=== PATIENT | female | born 1945 | race Caucasian/White ===

== ENCOUNTER 2018-03-30 08:10 | Emergency (ER) | payer BC, OTHER ==
[~2018-03-30] VITALS: Ht 152.4 cm; Wt 51.3 kg
[2018-03-30 08:10] VITALS: BP_SYST 166
[~2018-03-30 08:10] MED LIST: GLIPIZIDE; METFORMIN; SYNTHROID
--- NOTE | 2018-03-30 08:10 | NUR ---
BROUGHT BACK TO BED #6 AND TRIAGED, REPORT GIVEN TO ARGENIS
--- NOTE | 2018-03-30 08:26 | NUR ---
DR FINLEY AT BEDSIDE FOR EVALUATION
--- NOTE | 2018-03-30 08:28 | NUR ---
Pt complains of nausea and vomiting this morning and dizziness. Pt states when she woke up she thought the room was spinning. Pt denies fever. No other injuries/complaints per patient or noted.
--- NOTE | 2018-03-30 08:29 | NUR ---
Tati holloway in EDM - 03/30/18 at 0830 by [email or web address] ANKIT Paz at bedside examining patient.
[2018-03-30] MEDS ORDERED: KETOROLAC TROMETHAMINE 30 MG VIAL IM ONE (08:45)
[2018-03-30] MEDS ORDERED: ONDANSETRON 4 MG ODT TAB PO ONE (08:45)
--- NOTE | 2018-03-30 08:48 | NUR ---
Medications were given, pt tolerated well. no adverse reaction, will continue.
--- NOTE | 2018-03-30 09:15 | NUR ---
pt resting comfortably in hospital bed. No acute distress. Will cotninue to monitor.
[2018-03-30 10:25] VITALS: BP_SYST 143
--- NOTE | 2018-03-30 10:25 | NUR ---
Patient given written and verbal discharge instructions and verbalizes understanding. ER MD discussed with patient the results and treatment provided. Patient in stable condition. ID arm band removed. Rx of Tramadol and Zofran given. Patient educated on pain management and to follow up with PMD. Pain Scale 0. Opportunity for questions provided and answered. Medication side effect fact sheet provided.
[2018-03-31] MEDS ORDERED: SITA1TAB6 PO (18:23)
[2018-03-31] MEDS ORDERED: ASA81 PO (18:23)
[2018-03-31] MEDS ORDERED: LISI-209 PO (18:23)
[2018-03-31] MEDS ORDERED: LOVA20TA2 PO (18:23)
[2018-03-31] MEDS ORDERED: GLIP-212 PO (18:23)
[2018-03-31] MEDS ORDERED: LEVO100T PO (18:23)
== END 2018-03-30 10:25 | disposition home or self-care (01) ==
LOC: SED 08:10
DX: G44.209 Tension-type headache, unspecified, not intractable (principal); E11.9 Type 2 diabetes mellitus without complications; Z79.899 Other long term (current) drug therapy
CPT/HCPCS: 96372; 99283; J1885; Q0162

== ENCOUNTER 2018-03-31 16:22 | Inpatient (IN) | payer OTHER ==
[~2018-03-31] VITALS: Ht 152.4 cm; Wt 51.3 kg
[2018-03-31 16:31] VITALS: BP_SYST 158
[2018-03-31] MEDS ORDERED: MECLIZINE HCL 25 MG TABLET (ANITVERT) PO ONE (17:00)
[2018-03-31 17:08] LABS: BASOPHILS # (AUTO) 0.1 K/uL (0.0-0.2); BASOPHILS % (AUTO) 0.9 % (0.0-2.0); EOSINOPHILS # (AUTO) 0.1 K/uL (0.0-0.4); EOSINOPHILS % (AUTO) 0.9 % (0.0-4.0); HEMATOCRIT 40.2 % (36-48); HEMOGLOBIN 13.4 g/dL (12.0-16.0); LYMPHOCYTES # (AUTO) 1.8 K/uL (1.0-5.5); LYMPHOCYTES % (AUTO) 13.9 % (20.5-51.5); MEAN CORPUSCULAR HEMOGLOBIN 29 pg (27-31); MEAN CORPUSCULAR HGB CONC 33 % (32-36); MEAN CORPUSCULAR VOLUME 88 fL (79.0-98.0); MONOCYTES # (AUTO) 0.9 K/uL (0.0-1.0); NEUTROPHILS # (AUTO) 10.1 K/uL (1.8-7.7); NEUTROPHILS % (AUTO) 77.3 % (40.0-70.0); PLATELET COUNT (AUTO) 354 K/uL (130-430); RED BLOOD CELL COUNT(AUTO) 4.55 MIL/uL (4.2-6.2); RED CELL DISTRIBUTION WIDTH 12.1 % (9.0-15.0)
[2018-03-31 17:22] LABS: ANION GAP 11 (5-15); CALCIUM 9.6 mg/dL (8.4-11.0); CHLORIDE 102 mmol/L (98-107); CREATININE 0.71 mg/dL (0.55-1.30); GLUCOSE 205 mg/dL (70-99); POTASSIUM 3.7 mmol/L (3.5-5.1); SODIUM SERUM 140 mmol/L (136-145); UREA NITROGEN, BLOOD 25 mg/dL (8-21)
[2018-03-31 17:24] LABS: PROTHROMBIN TIME 10.5 SECS (9.5-12.5)
[2018-03-31 17:32] LABS: ALANINE AMINOTRANSFERASE 18 U/L (12-78); ASPARTATE AMINOTRANSFERASE 20 U/L (10-37); FREE T4 (FREE THYROXINE) 1.2 ng/dl (0.8-1.5); TOTAL BILIRUBIN 0.4 mg/dL (0.0-1.0)
[2018-03-31 17:37] LABS: ALCOHOL, BLOOD < 3 mg/dL (<10)
[2018-03-31] MEDS ORDERED: ASA81 PO (18:23)
[2018-03-31] MEDS ORDERED: LEVO100T PO (18:23)
[2018-03-31] MEDS ORDERED: GLIP-212 PO (18:23)
[2018-03-31] MEDS ORDERED: LOVA20TA2 PO (18:23)
[2018-03-31] MEDS ORDERED: LISI-209 PO (18:23)
[2018-03-31] MEDS ORDERED: SITA1TAB6 PO (18:23)
[2018-03-31] MEDS ORDERED: ASPIRIN 325 MG TABLET PO SCH (18:30)
[2018-03-31] MEDS ORDERED: NS 500 ML IV ONE (18:30)
[2018-03-31] MEDS: 0.45% NACL 1,000 ML IV SCH (19:55)
[2018-03-31 20:00] VITALS: BP_SYST 128
[2018-04-01 00:18] VITALS: BP_SYST 120
[2018-04-01 08:00] VITALS: BP_SYST 114
[2018-04-01] MEDS ORDERED: ATORVASTATIN 20 MG TABLET PO SCH (09:00)
[2018-04-01] MEDS: 0.45% NACL 1,000 ML IV SCH (09:17)
[2018-04-01] MEDS ORDERED: ONDANSETRON HCL 4 MG/2 ML VIAL IVP PRN (09:45)
[2018-04-01] MEDS ORDERED: ACETAMINOPHEN 325 MG TABLET PO PRN (09:45)
[2018-04-01] MEDS ORDERED: INSULIN REGULAR, HUMAN 100 UNITS/ML, 10 ML VIAL (novoLIN R) SUBCUT PRN (10:00)
[2018-04-01] MEDS ORDERED: DEXTROSE 50%-WATER 50 ML DISP.SYRIN IVP PRN ×2 (10:30)
[2018-04-01] MEDS ORDERED: GLUCOSE 15 GM GEL (in 37.5 GM TUBE) PO PRN ×2 (10:30)
[2018-04-01] MEDS ORDERED: OFLOXACIN 0.3%, 5 ML EAR DROPS OT SCH (10:30)
[2018-04-01 12:10] VITALS: BP_SYST 106
[2018-04-01 15:44] VITALS: BP_SYST 106
[2018-04-01 16:00] VITALS: BP_SYST 121
[2018-04-01] MEDS ORDERED: LIP40 PO (16:02)
[2018-04-01] MEDS ORDERED: NAPR-1172 PO (16:04)
[2018-04-01] MEDS ORDERED: OFLO5DRO5 LEFT EAR (16:05)
[2018-04-02] MEDS ORDERED: LEVOTHYROXINE SODIUM 0.1 MG TABLET PO SCH (07:00)
[2018-04-02] MEDS ORDERED: glipiZIDE XL 5 MG TAB ( GLUCOTROL XL) PO SCH (09:00)
[2018-04-02] MEDS ORDERED: ASPIRIN 325 MG TABLET (ECOTRIN) PO SCH (09:00)
[2018-04-02] MEDS ORDERED: LISINOPRIL 5 MG TABLET PO SCH (09:00)
[2018-04-02] MEDS ORDERED: ENOXAPARIN SODIUM 40 MG/0.4 ML SYRINGE SUBCUT SCH (09:00)
== END 2018-04-01 17:10 | disposition home health service (06) | DRG 66 ==
LOC: SED 16:22 → STU 18:28
PROVIDERS: ADMIT Internal Medicine; ATTEND Internal Medicine
DX: I63.8 Other cerebral infarction (principal); R29.810 Facial weakness; E03.9 Hypothyroidism, unspecified; E11.9 Type 2 diabetes mellitus without complications; E78.5 Hyperlipidemia, unspecified; H66.92 Otitis media, unspecified, left ear; I10 Essential (primary) hypertension; Z82.49 Family history of ischemic heart disease and other diseases of the circulatory system; Z90.710 Acquired absence of both cervix and uterus
CPT/HCPCS: 36415; 70450-TC; 71045; 74018; 80053; 82140-TC; 83605; 83880; 84439; 84484; 85025; 85610-TC; 87040-TC; 93005; 99285; G0482; J1815; J7030; J8597